=== PATIENT | male | born 1995 | race Caucasian/White ===

== ENCOUNTER 2024-05-20 15:51 | Emergency (ER) | payer OTHER, BC ==
[2024-05-20 16:14] VITALS: BP 135/86; PULSE 96; RESP 18; TEMP 98.2; BMI 29.9
[2024-05-20] MEDS ORDERED: IBUPROFEN 600 MG TABLET (FP) PO ONE (16:29)
[2024-05-20] MEDS: IBUPROFEN 600 MG TABLET (FP) PO ONE (16:37)
== END 2024-05-20 16:51 | disposition home or self-care (01) ==
LOC: JERFT 15:51 → JER 15:51 → JERFT 16:51
DX: S63.502A Unspecified sprain of left wrist, initial encounter (principal); X50.9XXA Other and unspecified overexertion or strenuous movements or postures, initial encounter; Y99.0 Civilian activity done for income or pay
CPT/HCPCS: 73090-TC-LT-FY; 73110-TC-LT-FY; 73130-TC-LT-FY; 99283-25